=== PATIENT | female | born 1985 | race Caucasian/White ===

== ENCOUNTER → 2016-07-25 | Outpatient (CLI) | payer OTHER ==
[~2016-07-25] MED LIST: MISCCAP80; PRENTAB26 PO
== END | disposition home or self-care (01) ==
LOC: C.LABSPEC 17:31
PROVIDERS: ATTEND Nurse Practitioner Family
DX: J02.9 Acute pharyngitis, unspecified (principal)

== ENCOUNTER → 2016-08-23 | Outpatient (CLI) | payer OTHER ==
--- NOTE | 2016-08-23 12:34 | DIAGNOSTIC IMAGING REPORT ---
ADDENDUM Findings: The largest node is on the left and measures 1.7 x 0.5 cm. Electronically signed by: Jacob Onofre M.D. 08/27/2016 7:22 AM Dictated Date/Time: 08/27/2016 7:18 AM ORIGINAL REPORT Soft tissue neck ULTRASOUND HISTORY: Dysphagia R07.0 Throat pain in [id number] Lesion of neck with tender pal nodule COMPARISON: None. FINDINGS: Several small benign-appearing and or reactive nodes of the cervical chains bilaterally. Liver is on the left is 1.7 x 0.5 cm. This has generally benign and reactive soft tissue characteristics. IMPRESSION: Several small benign-appearing nodes bilaterally. Electronically signed by: Jacob Onofre M.D. 08/23/2016 12:33 PM Dictated Date/Time: 08/23/2016 12:31 PM
== END | disposition home or self-care (01) ==
LOC: C.ULTR 11:34
PROVIDERS: ATTEND Family Medicine
DX: L98.9 Disorder of the skin and subcutaneous tissue, unspecified (principal); R07.0 Pain in throat

== ENCOUNTER → 2017-06-05 | Outpatient (CLI) | payer OTHER | END | disposition home or self-care (01) | LOC: C.PAPS 15:54 | PROVIDERS: ATTEND Physician Assistant | DX: Z01.419 Encounter for gynecological examination (general) (routine) without abnormal findings (principal) ==

== ENCOUNTER 2020-04-13 12:08 | Inpatient (IN) ==
[2020-04-13] MEDS ORDERED: LACTATED RINGER'S 1,000 ML IV PRN (12:53)
[2020-04-13] MEDS ORDERED: OXYTOCIN 30 UNITS/500 ML BAG IV PRN ×3 (12:53→19:46)
[2020-04-13 13:25] LABS: Hematocrit (blood only) 36.3 % (37-47); Hemoglobin 12.2 g/dL (12.0-16.0); Mean Corpuscular Hemoglobin 33.2 pg (25-34); Mean Corpuscular Hgb Conc 33.6 g/dL (32-36); Mean Corpuscular Volume 98.6 fL (80-100); Mean Platelet Volume 12.2 fL (7.4-10.4); Platelet Count 195 K/uL (130-400); RDW Coefficient of Variation 13.7 % (11.5-14.5); RDW Standard Deviation 49.3 fL (36.4-46.3); Red Blood Count 3.68 M/uL (4.2-5.4); White Blood Count 9.45 K/uL (4.8-10.8)
[2020-04-13 13:36] LABS: Albumin Level 2.9 gm/dl (3.4-5.0); BUN Creatinine Ratio 17.2 (10-20); Calcium 8.5 mg/dl (8.5-10.1); Creatinine Clr Calc Pharmacy 141.4 ml/min; Est GFR (Non-African American) 120.8; Potassium 3.8 mmol/L (3.5-5.1)
[2020-04-13 13:39] LABS: Albumin Globulin Ratio 0.8 (0.9-2); Bilirubin,Total 0.3 mg/dl (0.2-1); Globulin 3.7 gm/dl (2.5-4.0); Total Protein 6.6 gm/dl (6.4-8.2)
--- NOTE | 2020-04-13 16:59 | Labor Progress Brief Note ---
Date of Service April 13, 2020 Subjective Comfortable, some ctx. FHT Cat 1 [place] Q 2-4 min SVE 5/80/-1 AROM clear fluid. Anticipate . Assessment & Plan Admission and Anticipated Discharge Date Admission Date: April 13, 2020 Results & Data ([facility]) Vital Signs (Past 12 Hours) Vital Signs Temp Pulse Resp BP 04/13/20 15:43 73 18 116/62 04/13/20 14:27 71 120/67 04/13/20 12:35 73 115/73 04/13/20 12:21 36.9 C 77 16 148/90 H 04/13/20 12:16 77 148/90 H 04/13/20 12:14 36.9 C 18 Coding Level of Care Code None
[2020-04-13] MEDS ORDERED: HYDROCORTISONE ACETATE 25 MG SUPP PR PRN (19:46)
[2020-04-13] MEDS ORDERED: bisacodyL 10 MG SUPP PR PRN (19:46)
[2020-04-13] MEDS ORDERED: BENZOCAINE 20% AER SPR 82.5 GM CAN EXT PRN (19:46)
[2020-04-13] MEDS ORDERED: ACETAMINOPHEN 325 MG TAB PO PRN (19:46)
[2020-04-13] MEDS ORDERED: DIPHTHERIA/TETANUS/PERTUSSIS 0.5 ML SYR/VIAL IM ONE (19:46)
[2020-04-13] MEDS ORDERED: oxyCODONE/ACETAMINOPHEN 5mg/325mg TAB PO PRN (19:46)
[2020-04-13] MEDS ORDERED: SUPERCREAM 0.870% 15 GM JAR EXT PRN (19:46)
--- NOTE | 2020-04-13 19:49 | Delivery Summary ---
Vaginal Delivery Summary Date of Service April 13, 2020 Vaginal Delivery Summary Vaginal Delivery Summary: Pre-delivery diagnoses: 34yo @ 39 2/7, oligohydramnios, AMA Post-delivery diagnoses: same Procedure: spontaneous vaginal delivery Surgeon: Laverne Cody DO Complications: none Findings: Viable male . Apgars: 9/9. Weight pending, please see nursery records. Estimated blood loss: 300ml Description of delivery: The patient progressed to complete without anesthesia. She then began to push. She spontaneously vaginally delivered a viable from the cephalic presentation. The head delivered in RYLAN position. The anterior shoulder delivered, followed by the posterior shoulder, followed by the body. The baby was placed on mother's abdomen and a spontaneous cry was heard. The cord was doubly clamped and cut. Cord blood was obtained. The placenta was delivered spontaneously intact with a 3-vessel cord. The uterus and vagina were swept of clots and debris. IV pitocin was given. The uterus became firm. The cervix, vagina, and perineum were inspected and a first degree laceration was noted, since it was hemostatic, patient elected to not repair. Excellent hemostasis was observed. The mother and baby are recovering in stable and good condition in the room. Sponge and instrument counts were correct x 2. Laverne Cody DO [facility] [place]
--- NOTE | 2020-04-13 19:51 | History & Physical Report ---
Date of Service April 13, 2020 Assessment & Plan (1) : Admit for IOL due to oligohydramnios. Discussed with patient, she is agreeable. Pitocin. Admission and Anticipated Discharge Date Admission Date: April 13, 2020 History of Present Illness Chief Complaint: IOL for oligo Primary Care Provider: Yasmine Costello MD 34yo @ 39 07/03, oligohydramnios seen on office ultrasound. also complicated by: AMA NST's weekly @ 36 wks h/o TICK bites, had course of amox, labs for lyme neg saw specialist in [place] and being treated for symptoms currently on zitthromax, and cefuroxine Placenta no longer low lying at 32wks. declines flu shot 02/24/20 OC G2 Precipitous delivery Allergies Allergy/AdvReac Type Severity Reaction Status Date / Time No Known Allergies Allergy Verified 04/13/20 09:01 Home Medications Medication Instructions Recorded Confirmed Type polyethylene glycol 3350 17 17 g PO DAILY PRN gm 01/23/19 04/13/20 History gram/dose oral powder prenat.vits,damián,zur-yzij-jnjvk 1 tab PO DAILY 09/04/19 04/13/20 History Patient History Medical History Complex cyst of right ovary Constipation Dermatitis Encounter for anatomic survey Hx of varicella Low lying placenta, antepartum Tinea corporis Surgical History History of colposcopy History of wisdom tooth extraction Family History Grandmother Osteoporosis Heart disease Father Myocardial infarction Mother Hypertension Other No family history of adverse response to anesthesia Social History Smoking Status: Never smoker Second Hand Exposure: Yes (father smoked); Hx Alcohol Use: No Hx Substance Use: No Preferred Language: [place] Communication Ability: Effective Visual Impairment: Limited Hearing Ability: Normal [employer] Supervisor Required: No Beliefs That Will Affect Care: None marital status: marital status details: Geraldo Marques (34) [phone] Current Living Situation: Spouse and Family Current Living Situation Comment: Lives with and 2 kids, 1dog current occupational status: employed Feels Safe at Home: Yes Childhood Exposure to Second-Hand Smoke: No caffeine: Yes during the past year weight has: remained stable Dental Care, Regularly: Yes Physical Activity Frequency: Daily Seatbelt Use: always Assistive Devices: Glasses Review of Systems All systems reviewed & are unremarkable except as noted in HPI & below Physical Exam Physical Exam: FHT Cat [address] [place] rare SVE 70/-1 Constitutional: WD/WN, vitals as above Respiratory: normal respiratory effort, lungs clear to auscultation no respiratory distress Cardiovascular: Rate/Rhythm: regular rate and regular rhythm Gastrointestinal (Abdomen): Inspection/Auscultation: abdomen normal to inspection Percussion/Palpation: abdomen soft; abdomen nontender Gravid. No s/s chorio or abruption. Skin: no rashes, warm and dry Psychiatric: A+Ox3, euthymic affect Results & Data ([facility]) Vital Signs (Past 12 Hours) Vital Signs Temp Pulse Resp BP 04/13/20 19:45 70 130/68 04/13/20 19:02 81 130/61 04/13/20 18:01 73 107/64 04/13/20 17:04 80 120/76 04/13/20 17:01 36.8 C 80 20 120/76 04/13/20 15:43 73 18 116/62 04/13/20 14:27 71 120/67 04/13/20 12:35 73 115/73 04/13/20 12:21 36.9 C 77 16 148/90 H 04/13/20 12:16 77 148/90 H 04/13/20 12:14 36.9 C 18 Coding Level of Care Code None Diagnoses Z34.90
[2020-04-13] MEDS: IBUPROFEN 600 MG TAB PO PRN (20:30)
[2020-04-13] MEDS: DOCUSATE SODIUM 100 MG CAP PO SCH (20:33)
[2020-04-14] MEDS: IBUPROFEN 600 MG TAB PO PRN ×5 (00:12→20:42)
--- NOTE | 2020-04-14 06:41 | Obstetrical Progress Note ---
Date of Service <Mike Mulligan MD - Last Filed: 04/14/20 07:32> April 14, 2020 Assessment & Plan <Mike Mulligan MD - Last Filed: 04/14/20 07:32> (1) Spontaneous vaginal delivery: Ginger is a 34 y/o female who is now PPD #1 following medically- indicated IOL in setting of oligohydramnios, followed by at 39-2/7 weeks - Feels well today. Eating well, voiding well, ambulating well. - Pain well controlled with ibuprofen 600mg Q4H PRN. - Routine PPD care -- continue OOB and ambulation throughout today - After discharge will have [address] Cody Subjective <Mike Mulligan MD - Last Filed: 04/14/20 07:32> Ginger is a 34 y/o female who is now PPD #1 following medically- indicated IOL in setting of oligohydramnios, followed by at 39-2/7 weeks. Reports feeling well overall this morning. Minimal abdominal cramping with pain well managed on analgesics. Voiding without difficulty. Tolerating meals well and able to ambulate some. Endorses passing gas but not yet bowel movements. Some persistent lochia with some improvement this morning. Breast feeding well. Review of Systems Denies fever, chills, sweats Denies shortness of breath, difficulty breathing, chest pain, palpitations, chest pressure. Denies breast pain. Denies dysuria. Denies headache or changes in vision. Physical Exam <Mike Mulligan MD - Last Filed: 04/14/20 07:32> General: Alert, oriented. No acute distress. Cardiac: Regular rate and rhythm, no murmurs/rubs/gallops. Respiratory: Clear to auscultation bilaterally a/p, no wheezes/rales/rhonchi. No increased work of breathing. Symmetrical chest rise. No respiratory distress. Abdomen: Soft, nontender, nondistended. Bowel sounds present. Uterus: Uterine fundus firm, palpable 2 cm below umbilicus. Lower Extremities: No lower extremity edema or swelling. No deep calf pain. Sasha's negative bilaterally. Results & Data ([facility]) <Mike Mulligan MD - Last Filed: 11/19/20 07:32> Vital Signs (Past 12 Hours) Vital Signs Temp Pulse Pulse Resp BP BP 04/14/20 03:55 36.4 C L 70 18 101/66 04/13/20 23:25 36.9 C 71 18 105/57 L 04/13/20 21:46 74 109/55 L 04/13/20 21:17 81 118/55 L 04/13/20 20:46 71 114/61 04/13/20 20:45 18 04/13/20 20:31 66 116/63 04/13/20 20:17 70 137/58 L 04/13/20 20:15 18 04/13/20 20:00 18 04/13/20 19:45 36.5 C 70 16 130/68 04/13/20 19:02 81 130/61 <Laverne Cody DO - Last Filed: 04/14/20 07:48> Co-Signing Physician Notes Resident Physician Supervision Note: I was present with Dr. Mulligan during the history and exam. I discussed the case with the resident and agree with the findings and plan as documented in the note. Any exceptions or clarifications are listed here: PPD#1 doing well. Anticipate DC home tomorrow. Documented By: Laverne Cody DO Resident Activity Tracking <Mike Mulligan MD - Last Filed: 04/14/20 07:32> Resident Involvement: Resident Care Provided Care Provided: Adult Hospital Medicine and OB Delivery
[2020-04-14 07:28] LABS: Hemoglobin 11.2 g/dL (12.0-16.0)
[2020-04-14] MEDS: DOCUSATE SODIUM 100 MG CAP PO SCH ×2 (08:38→20:43)
[2020-04-14] MEDS: PRENATAL VITAMIN 1 TAB PO SCH (08:38)
[2020-04-14] MEDS ORDERED: bisacodyL 5 MG TABEC PO SCH (20:00)
[2020-04-14] MEDS ORDERED: POLYETHYLENE (MIRALAX) 17 GM PACK PO PRN (20:36)
[2020-04-15] MEDS: IBUPROFEN 600 MG TAB PO PRN ×2 (05:01→08:42)
--- NOTE | 2020-04-15 05:22 | Obstetrical Progress Note ---
Date of Service <Mike Mulligan MD - Last Filed: 04/15/20 06:25> April 15, 2020 Assessment & Plan <Mike Mulligan MD - Last Filed: 04/15/20 06:25> (1) Spontaneous vaginal delivery: Ginger is a 34 y/o female who is now PPD #2 following medically- indicated IOL in setting of oligohydramnios, followed by at 39-2/7 weeks - Feels well today. Eating well, voiding well, ambulating well. - Pain well controlled with ibuprofen 600mg Q4H PRN. - Routine PPD care -- continue OOB and ambulation throughout today - Anticipate d/c today pending peds and baby's feeding - After discharge will have [address] Cody Subjective <Mike Mulligan MD - Last Filed: 04/15/20 06:25> Ginger is a 34 y/o female who is now PPD #2 following medically- indicated IOL in setting of oligohydramnios, followed by at 39-2/7 weeks. Reports feeling well overall this morning. Endorses some abdominal cramping with pain well managed on analgesics. Voiding without difficulty. Tolerating meals well and able to ambulate some. Endorses passing gas. Some persistent lochia with some improvement this morning. Breast pumping d/t difficulties with breast feeding; she reports this has been going fine. Review of Systems Denies fever, chills, sweats Denies shortness of breath, difficulty breathing, chest pain, palpitations, ch est pressure. Denies breast pain. Denies dysuria. Denies headache or changes in vision. Physical Exam <Mike Mulligan MD - Last Filed: 04/15/20 06:25> General: Alert, oriented. No acute distress. Cardiac: Regular rate and rhythm, no murmurs/rubs/gallops. Respiratory: Clear to auscultation bilaterally a/p, no wheezes/rales/rhonchi. No increased work of breathing. Symmetrical chest rise. No respiratory distress. Abdomen: Soft, nontender, nondistended. Bowel sounds present. Uterus: Uterine fundus firm, palpable 3-4 cm below umbilicus. Lower Extremities: No lower extremity edema or swelling. No deep calf pain. Sasha's negative bilaterally. Results & Data ([facility]) <Mike Mulligan MD - Last Filed: 04/15/20 06:25> Vital Signs (Past 12 Hours) Vital Signs Temp Pulse Resp BP Pulse Ox 04/14/20 23:20 36.6 C 63 16 117/76 96 04/14/20 20:20 36.8 C 68 14 115/73 97 <Arely Sarabia MD, FACOG - Last Filed: 04/15/20 07:29> Co-Signing Physician Notes Resident Physician Supervision Note: I interviewed and examined the patient. Discussed with Dr. Mulligan and agree with findings and plan as documented in the note. Any exceptions or clarifications are listed here: Doing well. D/c today. Instructions given. Documented By: Arely Sarabia MD, FACOG Resident Activity Tracking <Mike Mulligan MD - Last Filed: 04/15/20 06:25> Resident Involvement: Resident Care Provided Care Provided: Adult Hospital Medicine and OB Delivery
[2020-04-15] MEDS: PRENATAL VITAMIN 1 TAB PO SCH (08:42)
[2020-04-15] MEDS: DOCUSATE SODIUM 100 MG CAP PO SCH (08:43)
== END 2020-04-15 11:20 | disposition home or self-care (01) | DRG 807 ==
LOC: 4S1 12:08 → 4S2 22:05